=== PATIENT | male | born 1970 | race Caucasian/White ===

== ENCOUNTER 2018-04-09 15:40 | Emergency (ER) | payer BC ==
[2018-04-09] MEDS ORDERED: Ondansetron INJ* 2 MG/ML VIAL IV ONE (16:43)
[2018-04-09] MEDS ORDERED: Morphine VIAL* 10 MG/ML 1 ML VIAL IV ONE (16:43)
--- NOTE | 2018-04-09 16:55 | ED ---
Adult Trauma - HPI Summary HPI Summary: This patient is a 47 year old M presenting to [facility] accompanied by status post fall approximately 14 feet off a roof. Pt states he landed feet first ( more impact on left), knees bent. The patient rates the pain 10/10 in severity. Symptoms aggravated by sitting up. Symptoms alleviated by nothing. Patient reports bilateral ankle pain (worse on left). Patient denies back pain, knee pain, neck pain, headache, abd pain, and hip pain. - History of Current Complaint Chief Complaint: EDExtremityLower Stated Complaint: FALL/LT LEG INJURY Time Seen by Provider: 04/09/18 16:27 Hx Obtained From: Patient Mechanism of Injury: Fall Ambulatory at the Scene: Yes Loss of Consciousness: no loss of consciousness Onset/Duration: Started Hours Ago, Traumatic, Still Present Onset of Pain: Immediate, Post Accident Onset Severity: Severe Current Severity: Severe Pain Intensity: 10 Pain Scale Used: 0-10 Numeric Location: Extremities Aggravating Factor(s): Other - Positive sitting up Alleviating Factor(s): Nothing Associated Signs & Symptoms: Positive: Other: - Negative back pain, knee pain, neck pain, headache, abd pain, and hip pain. - Allergy/Home Medications Allergies/Adverse Reactions: Allergies Allergy/AdvReac Type Severity Reaction Status Date / Time No Known Allergies Allergy Verified 04/09/18 15:46 Home Medications: Home Medications BuPROPion XL* 150 mg PO DAILY 04/09/18 [History Confirmed 04/09/18] PMH/Surg Hx/FS Hx/Imm Hx Previously Healthy: No Endocrine/Hematology History: Reports: Hx Diabetes - type 2 metformin, juanuvia Cardiovascular History: Reports: Hx Hypertension Infectious Disease History: No Infectious Disease History: Denies: Traveled Outside the [place] in Last 30 Days - Family History Known Family History: Positive: Cardiac Disease, Diabetes - Social History Occupation: Employed Full-time Lives: With Family Alcohol Use: Occasionally Hx Substance Use: No Substance Use Type: Reports: None Hx Tobacco Use: No Smoking Status (MU): Never Smoked Tobacco Review of Systems Negative: Abdominal Pain Positive: Other - Positive bilateral ankle pain (worse on left). Negative back pain, knee pain, neck pain, and hip pain Negative: Headache All Other Systems Reviewed And Are Negative: Yes Physical Exam - Summary Physical Exam Summary: VITAL SIGNS: Reviewed. GENERAL: Patient is a well-developed and nourished male who is lying comfortable in the stretcher. Patient is not in any acute respiratory distress. HEAD AND FACE: No signs of trauma. No ecchymosis, hematomas or skull depressions. No sinus tenderness. EYES: PERRLA, EOMI x 2, No injected conjunctiva, no nystagmus. EARS: Hearing grossly intact. Ear canals and tympanic membranes are within normal limits. MOUTH: Oropharynx within normal limits. NECK: Supple, trachea is midline, no adenopathy, no JVD, no carotid bruit, no c- spine tenderness, neck with full ROM. CHEST: Symmetric, no tenderness at palpation LUNGS: Clear to auscultation bilaterally. No wheezing or crackles. CVS: Regular rate and rhythm, S1 and S2 present, no murmurs or gallops appreciated. ABDOMEN: Soft, non-tender. No signs of distention. No rebound no guarding, and no masses palpated. Bowel sounds are normal. EXTREMITIES: no cyanosis or clubbing. Deformity in right ankle and foot. Tenderness upon palpation, limited ROM, good capillary refill, good sensation NEURO: Alert and oriented x 3. No acute neurological deficits. Speech is normal and follows commands. SKIN: Dry and warm Triage Information Reviewed: Yes Vital Signs On Initial Exam: Initial Vitals Temp Pulse Resp BP Pulse Ox 98.5 F 77 18 119/73 98 04/09/18 15:42 04/09/18 15:42 04/09/18 15:42 04/09/18 15:42 04/09/18 15:42 Vital Signs Reviewed: Yes Procedures - Splinting Left Lower Extremity Location: Left Ankle Hand-Made Type: orthoglass Splint: posterior walking Pre-Proc Neuro Vasc Exam: normal Post-Proc Neuro Vasc Exam: normal Diagnostics - Vital Signs Vital Signs Temp Pulse Resp BP Pulse Ox 04/09/18 16:10 72 128/76 96 04/09/18 15:42 98.5 F 77 18 119/73 98 - Laboratory Result Diagrams: 04/09/18 17:22 04/09/18 17:22 Lab Statement: Any lab studies that have been ordered have been reviewed, and results considered in the medical decision making process. - Radiology Thoracic Spine XR Radiology Interpretation Completed By: ED Physician - Thoracic Spine XR reveals , per ED physician, no acute fracture dislocation. Lumbar Spine XR Radiology Interpretation Completed By: ED Physician - Lumbar spine XR reveals, per ED physician, no acute fracture dislocation. Hip XR Radiology Interpretation Completed By: ED Physician - Hip XR reveals, per ED physician, no acute fracture dislocation. L Ankle XR Radiology Interpretation Completed By: ED Physician - L ankle XR reveals, per ED physician, calcaneal fracture. R Foot XR Radiology Interpretation Completed By: ED Physician - R foot XR reveals, per ED physician, no acute fracture dislocation. - EKG 1709 Cardiac Rate: NL EKG Rhythm: Sinus Rhythm - [address] Segment: Normal Adult Trauma Course/Dx - Course Assessment/Plan: This patient is a 47 year old M presenting to [facility] accompanied by status post fall approximately 14 feet off a roof. Pt states he landed feet first (more impact on left), knees bent. The patient rates the pain 10/10 in severity. Symptoms aggravated by sitting up. Symptoms alleviated by nothing. Patient reports bilateral ankle pain (worse on left). Patient denies back pain, knee pain, neck pain, headache, abd pain, and hip pain. X-ray of the left foot shows positive a calcaneal fracture. X-ray of the right foot shows no acute fracture dislocation. X-ray of bilateral ankles shows no fracture dislocation. X-ray of the lateral hips no fracture dislocation. X-ray is of the hip no fracture dislocation. X-rays of the T- spine and LS-spine shows no fracture dislocation. I discussed my physical exam , findings and test results with Dr. Velez from orthopedics and after he reviewed the x-rays he agrees that the patient has only the left calcaneal fracture. He requests for the patient to be placed in a posterior splint. He requests CAT scan of the left foot and ankle. He also requests for the patient to be discharged home after the CT and follow-up at his office tomorrow morning. I discussed the findings and test results with the patient and the he agrees and understands. In the ED course the patient was given a dose of morphine and Phenergan for the pain. He will be having a prescription for Percocets. Patient is hemolyticus stable alert oriented 3. Be instructed and non weight bearing, use crutches, and elevate his left upper extremity above his heart. Patient understands and agrees. - Diagnoses Provider Diagnoses: Calcaneal fracture - Physician Notifications Discussed Care Of Patient With: Shoaib Mcclellan Time Discussed With Above Provider: 18:05 Instructed by Provider To: Other - Consult with Dr. Mcclellan (orthopedics) at 1805. He will look at the x-rays for the patient, and requests a CT of the left lower extremity. Consult with Dr. Mcclellan (orthopedics) at 1815. He confirms all the x-rays are negative except for the calcaneus fracture. Discharge - Sign-Out/Discharge Documenting (check all that apply): Sign-Out Patient Signing out patient TO: Randal Cameron - Upon shift change pending CT - Discharge Plan Condition: Stable Disposition: HOME Prescriptions: oxyCODONE TAB* [Roxycodone TAB 5 mg*] 5 mg PO Q4H PRN #12 tab MDD 4 PRN Reason: Pain Patient Education Materials: Calcaneal Fracture (ED) Referrals: Shoaib Mcclellan MD [Medical Doctor] - As Soon As Possible Additional Instructions: F/U with Dr. Velez tomorrow at 8 am. Return to the emergency department for any new or worsening symptoms. - Billing Disposition and Condition Condition: STABLE - Attestation Statements Document Initiated by Scribe: Yes Documenting Scribe: Anastasia Eagle Provider For Whom Scribe is Documenting (Include Credential): Jose E Helm MD Scribe Attestation: IAnastasia, scribed for Jose E Helm MD on 04/11/18 at 1843. Scribe Documentation Reviewed: Yes Provider Attestation: The documentation as recorded by the Anastasia monzon accurately reflects the service I personally performed and the decisions made by me, Jose E Helm MD
[2018-04-09] MEDS ORDERED: NS 0.9% 1000 ML* 1,000 ML IV ONE (16:59)
[2018-04-09] MEDS ORDERED: Morphine INJ* 4 MG/ML 1 ML SYRINGE (NEW SYRINGE VERSION) ONE (17:07)
[2018-04-09 17:39] LABS: ABS Basophils 0 10^3/ul (0-0.2); ABS Eosinophils 0 10^3/ul (0-0.6); ABS Lymphocytes 1.4 10^3/ul (1.0-4.8); ABS Monocytes 0.7 10^3/ul (0-0.8); ABS Neutrophils 10.9 10^3/ul (1.5-7.7); ABS Nucleated RBC 0 10^3/ul; Eosinophil % 0.3 % (0-6); Hematocrit 46 % (42-52); Hemoglobin 15.3 g/dl (14.0-18.0); Lymphocyte % 10.5 % (25-47); Mean Corpuscular HGB Conc 33 g/dl (31-36); Mean Corpuscular Hemoglobin 29 pg (27-31); Mean Corpuscular Volume 89 fL (80-94); Mean Platelet Volume 7.9 um3 (7.4-10.4); Nucleated Red Blood Cells % 0; Platelet Count 203 10^3/ul (150-450); Red Cell Distribution Width 13 % (10.5-15)
[2018-04-09 17:55] LABS: EGFR Non-African American 78.8 (>60)
[2018-04-09] MEDS ORDERED: fentaNYL* 50 MCG/ML 2 ML VIAL (100 MCG VIAL) IV SLOW PU ONE (18:16)
[2018-04-09 18:26] VITALS: BP 134/84
--- NOTE | 2018-04-09 19:13 | ED ---
Progress - Results/Orders Results/Orders: CT lower extremity: Complex, comminuted calcaneal fracture. Dr. Cameron has reviewed this report. Course/Dx - Course Course Of Treatment: A CT LE revealed a complex, comminuted calcaneal fracture. - Diagnoses Provider Diagnoses: Calcaneal fracture - Provider Notifications Discussed Care Of Patient With: Shoaib Mcclellan Time Discussed With Above Provider: 18:05 Instructed by Provider To: Other - Consult with Dr. Mcclellan (orthopedics) at 1805. He will look at the x-rays for the patient, and requests a CT of the left lower extremity. Consult with Dr. Mcclellan (orthopedics) at 1815. He confirms all the x-rays are negative except for the calcaneus fracture. Discharge - Sign-Out/Discharge Documenting (check all that apply): Patient Departure - discharge, Receiving Sign-Out Receiving patient FROM: Jose E Helm - Discharge Plan Condition: Stable Disposition: HOME Prescriptions: oxyCODONE TAB* [Roxycodone TAB 5 mg*] 5 mg PO Q4H PRN #12 tab MDD 4 PRN Reason: Pain Patient Education Materials: Calcaneal Fracture (ED) Referrals: Shoaib Mcclellan MD [Medical Doctor] - As Soon As Possible Additional Instructions: F/U with Dr. Velez tomorrow at 8 am. Return to the emergency department for any new or worsening symptoms. - Billing Disposition and Condition Condition: STABLE Disposition: Home - Attestation Statements Document Initiated by Eric: Yes Documenting Scribe: Greg Rosales Provider For Whom Eric is Documenting (Include Credential): Dr. Randal Cameron MD Scribe Attestation: Greg Okeefe scribed for Dr. Randal Cameron MD on 04/09/18 at 2040. Scribe Documentation Reviewed: Yes Provider Attestation: The documentation as recorded by the Greg monzon accurately reflects the service I personally performed and the decisions made by me, Dr. Randal Cameron MD
--- NOTE | 2018-04-09 19:26 | RAD ---
EXAM: CT Left Lower Extremity Without Intravenous Contrast, Foot CLINICAL HISTORY: 47 years old, male; Injury or trauma; Fall; Initial encounter; Blunt trauma; Heel; Left; Additional info: Calcaneal fracture TECHNIQUE: Axial computed tomography images of the left foot without intravenous contrast. All CT scans at this facility use at least one of these dose optimization techniques: automated exposure control; mA and/or kV adjustment per patient size (includes targeted exams where dose is matched to clinical indication); or iterative reconstruction. Coronal and sagittal reformatted images were created and reviewed. COMPARISON: No relevant prior studies available. FINDINGS: Bones/joints: Complex, comminuted fracture of the calcaneus. No other tarsal fractures. No dislocation. Soft tissues: Diffuse soft tissue swelling surrounding the calcaneus. No radiopaque foreign body. IMPRESSION: 1. Complex, comminuted calcaneal fracture.
[2018-04-09] MEDS ORDERED: oxyCODONE/Acetamin 5/325 MG* TAB ONE (20:00)
[2018-04-09] MEDS ORDERED: oxyCODONE/Acetamin 5/325 MG* TAB PO ONE (20:04)
[2018-04-09] MEDS: oxyCODONE TAB* 5 MG TAB PO ONE ×2 (21:00)
--- NOTE | 2018-04-10 07:40 | RAD ---
HISTORY: trauma / fall COMPARISONS: None VIEWS: 6 , Frontal, lateral, and oblique views of the left foot and of the right foot FINDINGS: Right: BONE DENSITY: Normal. BONES: There is no displaced fracture. JOINTS: There is no arthropathy. ALIGNMENT: There is no dislocation. The alignment is anatomic. SOFT TISSUES: Unremarkable. Left: BONE DENSITY: Normal. BONES: There is a comminuted fracture of the left calcaneus with articular extension. JOINTS: There is no arthropathy. ALIGNMENT: There is no dislocation. The alignment is anatomic. SOFT TISSUES: Unremarkable. OTHER FINDINGS: None. IMPRESSION: COMMINUTED FRACTURE OF THE LEFT CALCANEUS. NO ACUTE OSSEOUS INJURY TO THE RIGHT FOOT. IF SYMPTOMS PERSIST, RECOMMEND REPEAT IMAGING. R1
--- NOTE | 2018-04-10 07:50 | RAD ---
INDICATION: Bilateral hip pain after falling off of the roof COMPARISON: None TECHNIQUE: 2 views of each hip and an AP view of the pelvis were obtained. FINDINGS: The visualized bones of the hips are well-corticated and properly aligned. The joint spaces are normal.. There is no radiographic evidence of acute fracture or dislocation. IMPRESSION: Normal radiograph of the bilateral hips. If the patient's symptoms persist follow-up imaging is recommended. R1
--- NOTE | 2018-04-10 07:52 | RAD ---
INDICATION: Back pain after falling off of a roof COMPARISON: None. TECHNIQUE: 4 views of the lumbar spine and 2 views of the thoracic spine were obtained. FINDINGS: The vertebra are in normal alignment. No fracture is seen. Mild degenerative changes include loss of intervertebral disc height at the lower thoracic and upper lumbar spine with mild anterior marginal osteophyte formation IMPRESSION: Mild degenerative changes without radiographically apparent fracture or dislocation. R1
--- NOTE | 2018-04-10 08:29 | RAD ---
INDICATION: Bilateral ankle pain after falling off of a roof COMPARISON: None. TECHNIQUE: 3 views of each ankle were obtained. FINDINGS: Left: There is moderate to severe soft tissue swelling overlying the left fibular malleolus. Depicted best on the lateral view there is comminuted fracture involving the calcaneus with inferior impaction of the talus. The remaining visualized bones appear to be intact and appropriately aligned. Right: There is no significant soft tissue swelling. On the lateral view there is a 3 mm bony fragment immediately posterior to the talocalcaneal joint without a definite donor site identified. Enthesophyte is noted on the calcaneal tubercle at the insertion site of the Achilles tendon. The bones otherwise appear to be intact and appropriately aligned. IMPRESSION: COMMINUTED LEFT CALCANEAL FRACTURE. The ER sr community manager conveyed notes to me regarding this patient's care indicating that Dr. Mcclellan is aware of the left calcaneal fracture. R1
== END 2018-04-09 21:40 | disposition home or self-care (01) ==
LOC: ED 15:40
DX: S92.002A Unspecified fracture of left calcaneus, initial encounter for closed fracture (principal); W13.2XXA Fall from, out of or through roof, initial encounter; Y92.9 Unspecified place or not applicable; M25.571 Pain in right ankle and joints of right foot; E11.9 Type 2 diabetes mellitus without complications; Z79.84 Long term (current) use of oral hypoglycemic drugs
CPT/HCPCS: 36415; 72070; 72100; 73523; 80053; 85025; 86140; 93005; 96361; 96374; 96375; 99283; A9270-GY; J2270; J2405; J3010

== ENCOUNTER 2018-04-20 09:05 | Day surgery (SDC) | payer BC ==
[~2018-04-20 09:05] MED LIST: Buffered Lidocaine 0.9% SYRIN* 5 ML/SYR SYRINGE INTRADERM ONE
[2018-04-20] MEDS ORDERED: Scopolamine 1.5 mg* PATCH ONE (09:45)
[2018-04-20] MEDS ORDERED: ceFAZolin 1 GM in Dextrose (*) 1 GM/50 ML BAG IVPB ONE (09:45)
[2018-04-20] MEDS ORDERED: ceFAZolin 2 GM PREMIX in ORs 2 GM/50 ML BAG IVPB ONE (09:45)
[2018-04-20] MEDS ORDERED: Midazolam* 1 MG/ML 2 ML VIAL (2 MG) ONE (09:46)
[2018-04-20] MEDS ORDERED: fentaNYL* 50 MCG/ML 2 ML VIAL (100 MCG VIAL) ONE ×2 (09:46→12:13)
[2018-04-20] MEDS ORDERED: Propofol* 10 MG/ML 20 ML BTL IV PUSH ONE (11:59)
[2018-04-20] MEDS ORDERED: Lidocaine 2% PF * 5 ML VIAL ONE (11:59)
[2018-04-20] MEDS ORDERED: Dexamethasone IV* 4 MG/ML 1 ML (4 MG) ONE (11:59)
[2018-04-20] MEDS ORDERED: Ondansetron INJ* 2 MG/ML VIAL ONE (11:59)
[2018-04-20] MEDS ORDERED: Bupivacaine 0.25% W/EPI* 10 ML SDV ONE (12:00)
[2018-04-20] MEDS ORDERED: Bupivacaine 0.25% SDV* 30 ML ONE (14:00)
[2018-04-20 16:06] VITALS: BP 123/73
--- NOTE | 2018-04-20 18:10 | OP ---
Operative Report - Blank - Operative Report Date of Operation: 04/20/18 Note: PATIENT: Geronimo Cortez DATE OF : 1970 DATE OF SURGERY: 04/20/2018 SURGEON: Shoaib Mcclellan MD SOFTWARE DEVELOPMENT COORDINATOR: ALESHIA Navarro, whos assistance was necessary for positioning, retraction, help with instrumentation, and closure. ANESTHESIOLOGIST: Dr. Clark PREOPERATIVE DIAGNOSIS: Left calcaneus fracture and peroneal tendon dislocation POSTOPERATIVE DIAGNOSIS: Left calcaneus fracture and peroneal tendon dislocation OPERATION: 1. Left calcaneus fracture open reduction and internal fixation. 2. Left ankle stabilization of dislocated peroneal tendons. ANESTHESIA: GETA + Block IMPLANTS: Arthrex comprehensive foot set plate and screws. TOURNIQUET TIME: Less than two hours with a well-padded thigh tourniquet at 250mmHg SPECIMENS: none ESTIMATED BLOOD LOSS: minimal COMPLICATIONS: none STATUS: Stable from the operating room to the recovery room and then home. INDICATIONS FOR PROCEDURE: Geronimo sustained a very comminuted and displaced left calcaneus fracture. He also dislocated his peroneal tendons. We had more than one long discussion about the severity of this injury and the likelihood of long-term problems. Both operative and non-operative treatment alternatives were reviewed. Further, the nature and risks of surgery were reviewed in careful detail, in the office as well as the pre-operative holding area. Our discussions regarding the risks of surgery included, but were not limited to, infection, wound problems, nerve injury, neuroma, RSD, persistent symptoms, blood clot, loss of fixation and reduction, malunion, nonunion, posttraumatic arthritis, persistent pain, skin breakdown, need for further surgery, failure of the surgery, and even the remote chance of catastrophic complication, including loss of limb. DESCRIPTION OF PROCEDURE: The patient was seen in the preoperative holding unit and informed written consent was obtained. The appropriate extremity was marked. The patient was then brought to the operating room and carefully positioned on the operating room table. Anesthesia was induced. All bony prominences were padded with great care. A well-padded thigh tourniquet was placed. A chlorhexidine based pre- scrub was performed followed by a chloraprep prep and drape in standard sterile fashion. A surgical safety pause was then conducted in which we confirmed the appropriate patient, extremity, planned procedure, availability of equipment, indication and administration of prophylactic antibiotics, and DVT prophylaxis in the form of a compression boot on the non-surgical extremity. I began with an Esmarch exsanguination of the limb and inflated the tourniquet. I utilized a sinus tarsi incision at the lateral hindfoot with proximal extension along the distal fibula. I carefully dissected down to the level of the subtalar joint, making sure to protect the peroneal tendons. I exposed the fractures and used a Napoles to loosen up the fracture fragments. Irrigation was used to remove fracture hematoma. I then reduced the fragments that involved the posterior facet. I placed K wires to hold the reduction. I then placed guidewires for the 3.0 mm cannulated screws. The placement was confirmed fluoroscopically, measured, overdrilled, and screws were placed. This held the posterior facet well reduced. I then placed a Steinmann pin into the posterior aspect calcaneus to lever this fragment out of varus. Once this was achieved, k-wires were used to provisionally hold the reduction. Fhese were confirmed fluoroscopically. I then placed an Arthrex calcaneus fracture plate laterally. Screws were placed through the plate into the fracture fragments. This held the calcaneus in satisfactory alignment. I then irrigated and placed cancellous allograft bone chips in the central defect of the calcaneus. At this point, all provisional fixation was removed and final fluoroscopic images were obtained. I directly visualized the posterior facet of the calcaneus, and confirmed that no hardware crossed into the joint. I then turned my attention to the dislocated peroneal tendons. They were grossly dislocated to the lateral aspect of the fibula. I incised the overlying superior peroneal retinaculum. I then relocated the peroneal tendons into the retro-fibular groove. I then utilized a 0.062 K wire and #1 Vicryl to repair this superior peroneal retinaculum to the posterior aspect of the fibula using transosseous sutures. This held the peroneal tendons well reduced. I was able to slide my Mozelle up along the tendons as well. The wound was then copiously irrigated and meticulously closed in layers utilizing 3-0 Monocryl and 3-0 Nylon for the skin. A sterile dressing was then applied followed by a splint with the ankle in a neutral position. The patient was then awakened from anesthesia and transferred to the recovery room in stable condition. There were no complications. All needle and sponge counts were correct at the end of the case. ATTESTATION: I attest I was present and scrubbed and performed the critical portions of the procedure myself. POSTOPERATIVE PLAN: The plan is for [id number] in a splint. Follow-up in 1 week for a wound check.
--- NOTE | 2018-04-21 07:38 | RAD ---
INDICATION: Left foot calcaneus fracture ORIF COMPARISONS: April 09, 2018 TECHNIQUE: Fluoroscopy was provided for a surgical procedure. Total fluoroscopy time is: 40.3 seconds FINDINGS: Spot images demonstrate internal fixation of the calcaneus. IMPRESSION: FLUOROSCOPY WAS PROVIDED FOR A SURGICAL PROCEDURE CPT II Codes: G9500
== END 2018-04-20 16:10 | disposition home or self-care (01) ==
LOC: OR 09:05
PROVIDERS: ATTEND Orthopaedic Surgery
DX: S92.012A Displaced fracture of body of left calcaneus, initial encounter for closed fracture (principal); M25.372 Other instability, left ankle; E11.9 Type 2 diabetes mellitus without complications; G89.18 Other acute postprocedural pain; Z79.84 Long term (current) use of oral hypoglycemic drugs; Z87.891 Personal history of nicotine dependence; W13.2XXA Fall from, out of or through roof, initial encounter; Y92.008 Other place in unspecified non-institutional (private) residence as the place of occurrence of the external cause; I10 Essential (primary) hypertension; G47.33 Obstructive sleep apnea (adult) (pediatric); E78.5 Hyperlipidemia, unspecified; K21.9 Gastro-esophageal reflux disease without esophagitis
CPT/HCPCS: 76001; A9270-GY; C1713; J0690; J1100; J2250; J2405; J2704; J3010

== ENCOUNTER 2018-04-23 21:38 | Emergency (ER) | payer BC ==
--- OUTSIDE RECORDS SUMMARY | 2018-04-23 21:50 | XMS REPORT ---
:1970 External Reference #:[id number] Author Organization [employer] Address [address] [place] [address] Phone [phone] Care Team Providers Name Role Phone Bebo Aguero NP Primary Care Physician Unavailable Payers Type Date Identification Numbers Payment Provider Subscriber Commercial Policy Number: [id number] [employer] Geronimo Cortez PayID: [id number] [address] [address] [place] [address] Problems Date Description Provider Status Onset: 04/18/2018 Cellulitis of left lower limb Shoaib Mcclellan MD Active Onset: 04/10/2018 Joint derangement Shoaib Mcclellan MD Active Onset: 04/10/2018 Closed fracture of calcaneus Shoaib Mcclellan MD Active Family History Date Family Member(s) Problem(s) Comments General Thyroid Disease General Diabetes General Lung Cancer Social History Type Date Description Comments ETOH Use Denies alcohol use Smoking Patient is a former smoker Allergies, Adverse Reactions, Alerts Date Description Reaction Status Severity Comments 05/14/2015 NKDA active Medications Medication Date Status Form Strength Qnty SIG Indications Ordering Provider Oxycodone HCL Active Tablets 5mg 40tabs 1 tabs by Shoaib 018 mouth Eleuterio, every 4-6 MD hours as needed Cephalexin Hx Tablets 250mg 40tabs 1 tab S92.012A Shoaib 018 - every six Eleuterio, hours MD [place] Knee Scooter Active 1units Shoaib Mcclellan MD Glipizide ER /0 Active Tablets ER 5mg 1 by Unknown 000 24HR mouth every day Lantus Active Solution 100Unit/ML 50 units Unknown Solostar 000 Pen-Inject a day Lisinopril Active Tablets 10mg 1 by Unknown 000 mouth every day Januvia Active Tablets 100mg 1 by Unknown 000 mouth every day Metformin HCL Active Tablets 1000mg 1 by Unknown 000 mouth twice a day Simvastatin Active Tablets 40mg 1 by Unknown 000 mouth every night at bedtime Co Q 10 Active Capsules 100mg 1 by Unknown 000 mouth every day Invokana Active Unknown 000 Medications Administered in Office Medication Date Status Form Strength Qnty SIG Indications Ordering Provider Technetium TC Administered Injection Ger Rosales M.D. Tetrofosmin, Per Unit Dose Up To 40 Millicuries Vital Signs Date Vital Result Comment 04/21/2018 Height 70 inches 5'10" Heart Rate 64 /min Respiratory Rate 16 /min Body Temperature 98.4 F Pain Level 7 04/18/2018 Height 70 inches 5'10" Weight 295.00 lb Heart Rate 76 /min Respiratory Rate 18 /min Body Temperature 97.0 F Pain Level 3 BMI (Body Mass Index) 42.3 kg/m2 04/10/2018 Height 70 inches 5'10" Weight 295.00 lb Heart Rate 84 /min Respiratory Rate 18 /min Body Temperature 97.5 F Pain Level 5 BMI (Body Mass Index) 42.3 kg/m2 Results Test Date Test Result H/L Range Note Laboratory test finding 04/20/2018 Point of Care Glucose 120 mg/dL High 70 -100 1 Laboratory test finding 04/20/2018 Point of Care Glucose 149 mg/dL High 70 -100 2 1 Treasury Assistant: [id number] Treasury Assistant: [id number] Procedures Date CPT Code Description Status 04/20/2018 14015 FX Calcaneus W/Wo Fixation Open TX Completed 04/20/2018 75093 Repair Dislocating Peroneal Tendon Completed 05/15/2015 94574 Stress Test Completed 05/15/2015 80412 Myocardial Perfusion Imaging Tomographic (Spect) Completed Multiple Studies Encounters Type Date Location Provider CPT E/M Dx Office Visit 04/18/2018 [facility] [place] [address] S92.012A 9:45a [facility] M25.372 L03.116 W17.89xA L53.9 Office Visit 04/10/2018 2:45p [facility] [place] [address] S92.012A [facility] [place] M25.372 W17.89xA Plan of Care Future Appointment(s):04/28/2018 8:30 am - Shoaib Mcclellan MD at [facility]05/01/2018 1:45 pm - Shoaib Mcclellan MD at [facility]
--- OUTSIDE RECORDS SUMMARY | 2018-04-23 21:50 | XMS REPORT ---
:1970 External Reference #:[id number] Author Organization [employer] Address [address] [place] [address] [place] [address] Phone [phone] Care Team Providers Name Role Phone Bebo Aguero NP Primary Care Physician Unavailable Payers Type Date Identification Numbers Payment Provider Subscriber Commercial Policy Number: [id number] BS Facets Geronimo Cortez PayID: [id number] [address] [address] [place] [address] Problems Date Description Provider Status Onset: 04/18/2018 [...] Form Strength Qnty SIG Indications Ordering Provider Cephalexin Hx Tablets 250mg 40tabs 1 tab S92.012A Shoaib Corado - every six Eleuterio, hours MD Corado Knee Scooter Active 1units Shoaib Mcclellan MD Glipizide ER Active Tablets ER 5mg 1 by Unknown 000 24HR mouth every day Lantus Active Solution 100Unit/ML 50 units Unknown Solostar 000 Pen-Inject a day Lisinopril 00/00/0 Active Tablets 10mg 1 by Unknown 000 mouth every day Januvia 0 Active Tablets 100mg 1 by Unknown 000 mouth every day Metformin HCL 0 Active Tablets 1000mg 1 by Unknown 000 mouth twice a day Simvastatin Active Tablets 40mg 1 by Unknown 000 mouth every night at bedtime Co Q 10 Active Capsules 100mg 1 by Unknown 000 mouth every day Invokana Active Unknown 000 Medications Administered in Office Medication Date Status Form Strength Qnty SIG Indications Ordering Provider Technetium TC Administered Injection Ger Deleon 99M María Rosales M.D. Tetrofosmin, Per Unit Dose Up To 40 Millicuries Vital Signs Date Vital Result Comment 04/18/2018 Height 70 inches 5'10" Weight 295.00 lb Heart Rate 76 /min Respiratory Rate 18 /min Body Temperature 97.0 F Pain Level 3 BMI (Body Mass Index) 42.3 kg/m2 04/10/2018 Height 70 inches 5'10" Weight 295.00 lb Heart Rate 84 /min Respiratory Rate 18 /min Body Temperature 97.5 F Pain Level 5 BMI (Body Mass Index) 42.3 kg/m2 Results Description No Information Procedures Date CPT Code Description Status 05/15/2015 78841 Stress Test Completed 05/15/2015 99135 Myocardial Perfusion Imaging Tomographic (Spect) Completed Multiple Studies Encounters Type Date Location Provider CPT E/M Dx Office Visit 04/10/2018 [facility] [place] [address] S92.012A 2:45p [facility] M25.372 W17.89xA Plan of Care Future Appointment(s):05/01/2018 1:45 pm - Shoaib Mcclell[facility]04/20/2018 12:15 pm - BRIEN Navarro at [facility]04/20/2018 12:15 pm - Shoaib Mcclellan MD at [facility].04/18/2018 - Shoaib Mcclellan MDS92.012A Disp fx of body of left calcaneus, init for clos fxNew Medication:Cephalexin 250 mgFollow up: Follow Up: 13-15 days marpqoK34.372 Other instability, left mundaK26.116 Cellulitis of left lower limb
--- OUTSIDE RECORDS SUMMARY | 2018-04-23 21:51 | XMS REPORT ---
:1970 External Reference #:[id number] Author Organization [employer] Address [address] [place] [address] [place] [address] Phone [phone] Care Team Providers Name Role Phone Bebo Aguero NP Primary Care Physician Unavailable Payers Type Date Identification Numbers Payment Provider Subscriber Commercial Policy Number: [id number] BS Facets Geronimo Cortez PayID: [id number] [address] [address] [place] [address] Problems Description No Information Family History Date Family Member(s) Problem(s) Comments General Thyroid Disease General Diabetes General Lung Cancer Social History Type Date Description Comments ETOH Use Denies alcohol use Smoking Patient is a former smoker Allergies, Adverse Reactions, Alerts Date Description Reaction Status Severity Comments 05/14/2015 NKDA active Medications Medication Date Status Form Strength Qnty SIG Indications Ordering Provider Knee Scooter Active 1units Shoaib 018 MD Eleuterio Glipizide ER Active Tablets ER 5mg 1 [...] Millicuries Vital Signs Date Vital Result Comment 04/10/2018 Height 70 inches 5'10" Weight 295.00 lb Heart Rate 84 /min Respiratory Rate 18 /min Body Temperature 97.5 F Pain Level 5 BMI (Body Mass Index) 42.3 kg/m2 Results Description No Information Procedures Date CPT Code Description Status 05/15/2015 09016 Stress Test Completed 05/15/2015 94122 Myocardial Perfusion Imaging Tomographic (Spect) Completed Multiple Studies Plan of Care Future Appointment(s):04/18/2018 9:45 am - [facility]
[2018-04-23] MEDS ORDERED: Vancomycin(*) 1,000 MG in NS 0.9% 250 ML* 250 ML IVPB ONE (23:19)
[2018-04-23] MEDS ORDERED: NS 0.9% 1000 ML* 1,000 ML IV ONE (23:19)
[2018-04-23] MEDS ORDERED: Piperacillin/Tazobac ADVAN(*) 3.375 GM in NS 0.9% 100 ML* 100 ML IVPB ONE (23:20)
[2018-04-23 23:49] LABS: ABS Basophils 0.1 10^3/ul (0-0.2); ABS Eosinophils 0.2 10^3/ul (0-0.6); ABS Lymphocytes 2.4 10^3/ul (1.0-4.8); ABS Monocytes 0.6 10^3/ul (0-0.8); ABS Neutrophils 4.1 10^3/ul (1.5-7.7); ABS Nucleated RBC 0 10^3/ul; Eosinophil % 2.3 % (0-6); Hematocrit 39 % (42-52); Hemoglobin 13.3 g/dl (14.0-18.0); Lymphocyte % 32.1 % (25-47); Mean Corpuscular HGB Conc 34 g/dl (31-36); Mean Corpuscular Hemoglobin 30 pg (27-31); Mean Corpuscular Volume 88 fL (80-94); Mean Platelet Volume 7.3 um3 (7.4-10.4); Nucleated Red Blood Cells % 0.1; Platelet Count 244 10^3/ul (150-450); Red Blood Count 4.44 10^6/ul (4.00-5.40); Red Cell Distribution Width 13 % (10.5-15); White Blood Count 7.4 10^3/ul (3.5-10.8)
[2018-04-23 23:56] LABS: INR 0.95 (0.77-1.02)
[2018-04-24 00:04] LABS: EGFR Non-African American 56.9 (>60)
[2018-04-24] MEDS ORDERED: Morphine INJ* 4 MG/ML 1 ML SYRINGE (NEW SYRINGE VERSION) ONE (00:44)
[2018-04-24] MEDS ORDERED: Ondansetron INJ* 2 MG/ML VIAL ONE (00:44)
[2018-04-24] MEDS ORDERED: Ondansetron INJ* 2 MG/ML VIAL IV ONE (00:46)
[2018-04-24] MEDS ORDERED: Morphine INJ* 4 MG/ML 1 ML SYRINGE (NEW SYRINGE VERSION) IV ONE (00:46)
--- NOTE | 2018-04-24 00:55 | ED ---
Lower Extremity - HPI Summary HPI Summary: Patient is a 47 y/o M w/ c/o left foot pain, burning sensation, and tingling onsetting around 1800 today. Fever and chills are denied. He notes that he had surgery for his left foot three days ago after falling off of the roof of a house. Patient reports bone graft, plates were placed. He states he has been keeping leg elevated and has been avoiding walking on foot as much as possible. Patient states that he took Tylenol x 3 today, last was 2000, 500 mg, 2 oxycodone at 1930, and 4 Motrin, last at 1800, 400 mg. Patient has been on Keflex. Patient is diabetic, takes metformin, lasix and victoza. BG this morning was 139. On triage, pain is rated 7/10, nothing is noted to aggravate/ alleviate Sx. Home medications and allergies are reviewed. - History of Current Complaint Chief Complaint: EDExtremityLower Stated Complaint: LEFT LEG NUMBNESS POST SURGERY Time Seen by Provider: 04/23/18 22:58 Hx Obtained From: Patient Mechanism Of Injury: Other - initial mechanism of injury involved falling from roof of house, patient had foot surgery and is now concerned of left foot pain and tingling Onset/Duration: Hours - onset 1800 today Severity Currently: Severe - 7/10 Pain Intensity: 7 Pain Scale Used: 0-10 Numeric - 7/10 Timing: Constant Location: Is Discrete @ - left foot Associated Signs And Symptoms: Positive: Other - NEGATIVE: chills. Negative: Fever Aggravating Factor(s): Nothing Alleviating Factor(s): Nothing - Allergies/Home Medications Allergies/Adverse Reactions: Allergies Allergy/AdvReac Type Severity Reaction Status Date / Time No Known Allergies Allergy Verified 04/23/18 21:42 PMH/Surg Hx/FS Hx/Imm Hx Endocrine/Hematology History: Reports: Hx Diabetes - type 2 metformin, Cardiovascular History: Reports: Hx Hypertension, Other Cardiovascular Problems/ Disorders - on BP med for diabetes Respiratory History: Reports: Hx Sleep Apnea Sensory History: Reports: Hx Contacts or Glasses - readers Denies: Hx Hearing Aid Opthamlomology History: Reports: Hx Contacts or Glasses - readers Neurological History: Reports: Other Neuro Impairments/Disorders - on meds to help with stress at work - Cancer History Hx Chemotherapy: No - Surgical History Surgery Procedure, Year, and Place: right ring finger knuckle repair. carpal tunnel release right hand. tonsillectomy and adenoidectomy Hx Anesthesia Reactions: Yes - just a little nausea with vomiting Infectious Disease History: No Infectious Disease History: Denies: Traveled Outside the [place] in Last 30 Days - Family History Known Family History: Positive: Cardiac Disease, Diabetes - Social History Alcohol Use: Weekly Hx Substance Use: No Substance Use Type: Reports: None Hx Tobacco Use: No Smoking Status (MU): Former Smoker Amount Used/How Often: smoked for [id number] , 1ppd Review of Systems Negative: Fever, Chills Positive: Other - left foot pain Neurological: Other - tingling, burning sensation at left foot All Other Systems Reviewed And Are Negative: Yes Physical Exam - Summary Physical Exam Summary: VITAL SIGNS: Reviewed. GENERAL: Patient is a well-developed and nourished male who is lying comfortable in the stretcher. Patient is not in any acute respiratory distress. HEAD AND FACE: No signs of trauma. No ecchymosis, hematomas or skull depressions. No sinus tenderness. EYES: PERRLA, EOMI x 2, No injected conjunctiva, no nystagmus. EARS: Hearing grossly intact. Ear canals and tympanic membranes are within normal limits. MOUTH: Oropharynx within normal limits. NECK: Supple, trachea is midline, no adenopathy, no JVD, no carotid bruit, no c- spine tenderness, neck with full ROM. CHEST: Symmetric, no tenderness at palpation LUNGS: Clear to auscultation bilaterally. No wheezing or crackles. CVS: Regular rate and rhythm, S1 and S2 present, no murmurs or gallops appreciated. ABDOMEN: Soft, non-tender. No signs of distention. No rebound no guarding, and no masses palpated. Bowel sounds are normal. EXTREMITIES: FROM in all major joints, no edema, no cyanosis or clubbing. Patient can wiggle toes but he reports it is painful. NEURO: Alert and oriented x 3. No acute neurological deficits. Speech is normal and follows commands. SKIN: Dry and warm. Left leg had posterior splint up to knee from distal foot. This was removed to reveal swelling of left foot, warm and tender, incision over the lateral aspect with stitches. There is erythema around stitches, no drainage. dorsalis pedis pulses are 2+ Triage Information Reviewed: Yes Vital Signs On Initial Exam: Initial Vitals Temp Pulse Resp BP Pulse Ox 98.2 F 111 18 131/76 97 04/23/18 21:41 04/23/18 21:41 04/23/18 21:41 04/23/18 21:41 04/23/18 21:41 Vital Signs Reviewed: Yes Procedures - Splinting Left Lower Extremity Hand-Made Type: orthoglass Splint: posterior walking Pre-Proc Neuro Vasc Exam: normal Post-Proc Neuro Vasc Exam: normal Diagnostics - Vital Signs Vital Signs Temp Pulse Resp BP Pulse Ox 04/24/18 00:46 18 04/24/18 00:01 80 123/87 98 04/24/18 00:00 81 97 04/23/18 23:52 84 140/92 97 04/23/18 23:36 97 04/23/18 23:31 86 93/66 94 04/23/18 23:30 84 96 04/23/18 21:41 98.2 F 111 18 131/76 97 - Laboratory Lab Results: Lab Results 04/23/18 04/23/18 04/23/18 Range/Units 23:30 23:30 23:30 WBC 7.4 (3.5-10.8) 10^3/ul RBC 4.44 (4.00-5.40) 10^6/ul Hgb 13.3 L (14.0-18.0) g/dl Hct 39 L (42-52) % MCV 88 (80-94) fL MCH 30 (27-31) pg MCHC 34 (31-36) g/dl RDW 13 (10.5-15) % Plt Count 244 (150-450) 10^3/ul MPV 7.3 L (7.4-10.4) um3 Neut % (Auto) 56.1 (38-83) % Lymph % (Auto) 32.1 (25-47) % Ballard % (Auto) 8.7 H (0-7) % Eos % (Auto) 2.3 (0-6) % Baso % (Auto) 0.8 (0-2) % Absolute Neuts (auto) 4.1 (1.5-7.7) 10^3/ul Absolute Lymphs (auto) 2.4 (1.0-4.8) 10^3/ul Absolute Monos (auto) 0.6 (0-0.8) 10^3/ul Absolute Eos (auto) 0.2 (0-0.6) 10^3/ul Absolute Basos (auto) 0.1 (0-0.2) 10^3/ul Absolute Nucleated RBC 0 10^3/ul Nucleated RBC % 0.1 INR (Anticoag Therapy) 0.95 (0.77-1.02) APTT 29.9 (26.0-36.3) seconds Sodium 138 (135-145) mmol/L Potassium 4.3 (3.5-5.0) mmol/L Chloride 102 (101-111) mmol/L Carbon Dioxide 29 (22-32) mmol/L Anion Gap 7 (2-11) mmol/L BUN 27 H (6-24) mg/dL Creatinine 1.34 H (0.67-1.17) mg/dL Est GFR ( Amer) 68.8 (>60) Est GFR (Non-Af Amer) 56.9 (>60) BUN/Creatinine Ratio 20.1 H (8-20) Glucose 126 H (70-100) mg/dL Lactic Acid (0.5-2.0) mmol/L Calcium 8.9 (8.6-10.3) mg/dL Total Bilirubin 0.40 (0.2-1.0) mg/dL AST 15 (13-39) U/L ALT 21 (7-52) U/L Alkaline Phosphatase 63 (34-104) U/L Total Creatine Kinase 103 (10-223) U/L C-Reactive Protein 136.49 H (<8.01) mg/L Total Protein 6.7 (6.4-8.9) g/dL Albumin 3.6 (3.2-5.2) g/dL Globulin 3.1 (2-4) g/dL Albumin/Globulin Ratio 1.2 (1-3) 04/23/ Range/Units 23:30 WBC (3.5-10.8) 10^3/ul RBC (4.00-5.40) 10^6/ul Hgb (14.0-18.0) g/dl Hct (42-52) % MCV (80-94) fL MCH (27-31) pg MCHC (31-36) g/dl RDW (10.5-15) % Plt Count (150-450) 10^3/ul MPV (7.4-10.4) um3 Neut % (Auto) (38-83) % Lymph % (Auto) (25-47) % Ballard % (Auto) (0-7) % Eos % (Auto) (0-6) % Baso % (Auto) (0-2) % Absolute Neuts (auto) (1.5-7.7) 10^3/ul Absolute Lymphs (auto) (1.0-4.8) 10^3/ul Absolute Monos (auto) (0-0.8) 10^3/ul Absolute Eos (auto) (0-0.6) 10^3/ul Absolute Basos (auto) (0-0.2) 10^3/ul Absolute Nucleated RBC 10^3/ul Nucleated RBC % INR (Anticoag Therapy) (0.77-1.02) APTT (26.0-36.3) seconds Sodium (135-145) mmol/L Potassium (3.5-5.0) mmol/L Chloride (101-111) mmol/L Carbon Dioxide (22-32) mmol/L Anion Gap (2-11) mmol/L BUN (6-24) mg/dL Creatinine (0.67-1.17) mg/dL Est GFR ( Amer) (>60) Est GFR (Non-Af Amer) (>60) BUN/Creatinine Ratio (8-20) Glucose (70-100) mg/dL Lactic Acid 0.7 (0.5-2.0) mmol/L Calcium (8.6-10.3) mg/dL Total Bilirubin (0.2-1.0) mg/dL AST (13-39) U/L ALT (7-52) U/L Alkaline Phosphatase (34-104) U/L Total Creatine Kinase (10-223) U/L C-Reactive Protein (<8.01) mg/L Total Protein (6.4-8.9) g/dL Albumin (3.2-5.2) g/dL Globulin (2-4) g/dL Albumin/Globulin Ratio (1-3) Result Diagrams: 04/23/18 23:30 04/23/18 23:30 Lab Statement: Any lab studies that have been ordered have been reviewed, and results considered in the medical decision making process. Re-Evaluation - Re-Evaluation First Eval Re-Evaluation Time: 00:50 Comment: Posterior splint was allpied from the left forefoot to the proximal leg. He will be discharged to home, follow up with dr. spence tomorrow. He is agreeable with this plan. Lower Extremity Course/Dx - Course Assessment/Plan: Patient is a 47 y/o M w/ c/o left foot pain, burning sensation , and tingling onsetting around 1800 today. Fever and chills are denied. He notes that he had surgery for his left foot three days ago after falling off of the roof of a house. Patient reports bone graft, plates were placed. He states he has been keeping leg elevated and has been avoiding walking on foot as much as possible. Patient states that he took Tylenol x 3 today, last was 2000, 500 mg, 2 oxycodone at 1930, and 4 Motrin, last at 1800, 400 mg. Patient has been on Keflex. Physical exam showed left leg had posterior splint up to knee from distal foot. This was removed to reveal swelling of left foot, warm and tender, incision over the lateral aspect with stitches. There is erythema around stitches, no drainage. dorsalis pedis pulses are 2+. During ED course, patient was given fluids, IV antibiotics, Zofran 8 mg IV ONCE, and morphine 4 mg IV ONCE. Labs showed CRP 136.49, glucose 126, WBC 7.4, BUN 27, 1.34 creatinine. Patient's case was discussed with Dr. Dc at 2344, images of patient's foot texted to him. Dr. Dc states images are consistent w/ post-op changes, notes that it is normal for patient to experience pain with movement of toes. He states patient can be discharged to home and follow up with Dr. Spence in morning. Posterior orthoglass splint was applied to patient's left leg, neuovascular exam before and after splint application was normal. Patient is agreeable with discharge and follow up with Dr. Spence tomorrow. Dx of acute post-operative left foot pain - Diagnoses Provider Diagnoses: Acute postoperative pain of left foot - Physician Notifications Discussed Care Of Patient With: López Dc Time Discussed With Above Provider: 23:44 Instructed by Provider To: Other - Patient's case was discussed with Dr. Dc at 2344, images of patient's foot texted to him. Dr. Dc states images are consistent w/ post-op changes, notes that it is normal for patient to experience pain with movement of toes. He states patient can be discharged to home and follow up with Dr. Spence in morning. Discharge - Sign-Out/Discharge Documenting (check all that apply): Patient Departure - discharge - Discharge Plan Condition: Stable Disposition: HOME Patient Education Materials: Leg Pain (ED) Referrals: Shoaib Spence MD [Medical Doctor] - 1 Day Additional Instructions: RETURN TO THE EMERGENCY DEPARTMENT FOR CHANGING OR WORSENING SYMPTOMS. FOLLOW UP WITH DR. SPENCE TOMORROW MORNING. KEEP LEG ELEVATED, TAKE PAIN MEDICATIONS NEEDED. - Attestation Statements Document Initiated by Scribe: Yes Documenting Scribe: Waldemar Gongora Provider For Whom Scribe is Documenting (Include Credential): Lydia Toledo MD Scribe Attestation: IWaldemar , scribed for Lydia Toledo MD on 04/24/18 at 1463.
[2018-04-24 02:18] VITALS: BP 102/62
== END 2018-04-24 02:20 | disposition home or self-care (01) ==
LOC: ED 21:38
DX: G89.18 Other acute postprocedural pain (principal); M79.672 Pain in left foot; Z87.891 Personal history of nicotine dependence
CPT/HCPCS: 36415; 80053; 82550; 83605; 85025; 85610; 85730; 86140; 87040; 96365; 96366; 96375; 96376; 99284; J2270; J2405; J2543; J3370

== ENCOUNTER 2019-06-28 06:25 | Day surgery (SDC) | payer BC ==
[~2019-06-28 06:25] MED LIST changes: -Buffered Lidocaine 0.9% SYRIN* 5 ML/SYR SYRINGE INTRADERM ONE; +Buffered Lidocaine 1% SYRIN* 1 ML/SYRINGE INTRADERM ONE; +Lactated Ringers 1000 ML Bag* 1,000 ML IV SCH
[2019-06-28] MEDS ORDERED: ceFAZolin 2 GM in NS PREMIX(*) 2 GM/100 ML BAG IVPB ONE (07:16)
[2019-06-28] MEDS ORDERED: Buffered Lidocaine 1% SYRIN* 1 ML/SYRINGE INTRADERM ONE (07:16)
[2019-06-28] MEDS ORDERED: Bupivacaine 0.25% EPI 200,000* 30 ML SDV ONE (07:26)
[2019-06-28] MEDS ORDERED: ceFAZolin 1 GM ADVAN(*) 1 GM ADDV.VIAL IVPB ONE (07:37)
[2019-06-28] MEDS ORDERED: fentaNYL* 50 MCG/ML 2 ML VIAL (100 MCG VIAL) ONE (07:52)
[2019-06-28] MEDS ORDERED: Lidocaine 2% PF * 5 ML VIAL ONE (07:52)
[2019-06-28] MEDS ORDERED: Propofol* 10 MG/ML 20 ML BTL ONE (07:52)
[2019-06-28] MEDS ORDERED: Midazolam* 1 MG/ML 2 ML VIAL (2 MG) ONE (07:52)
[2019-06-28] MEDS ORDERED: Succinylcholine* 20 MG/ML 10 ML VIAL ONE (07:53)
[2019-06-28] MEDS ORDERED: Rocuronium* 10 MG/ML VIAL ONE (07:53)
[2019-06-28] MEDS ORDERED: Ketorolac INJ* 30 MG/ML 1 ML VIAL ONE (08:32)
[2019-06-28] MEDS ORDERED: Ondansetron INJ* 2 MG/ML VIAL ONE (08:32)
[2019-06-28] MEDS ORDERED: Dexamethasone IV* 4 MG/ML 1 ML (4 MG) ONE (08:32)
[2019-06-28] MEDS ORDERED: Metoclopramide IV* 5 MG/ML 2 ML VIAL ONE (08:32)
[2019-06-28] MEDS ORDERED: DiMENhydriNATE IV* 50 MG/ML VIAL IV PUSH PRN (08:36)
[2019-06-28] MEDS ORDERED: oxyCODONE TAB* 5 MG TAB PO PRN (08:36)
[2019-06-28] MEDS ORDERED: Acetaminophen TAB* 325 MG PO PRN (08:36)
[2019-06-28] MEDS ORDERED: fentaNYL* 50 MCG/ML 2 ML VIAL (100 MCG VIAL) IV PRN (08:36)
[2019-06-28] MEDS ORDERED: Naloxone* 0.4 MG/ML 1 ML VIAL IV PRN (08:36)
[2019-06-28] MEDS ORDERED: Bupivacaine 0.25% SDV PF* 10 ML VIAL INJ ONE (09:40)
[2019-06-28] MEDS ORDERED: Acetaminophen TAB* 325 MG ONE (10:29)
[2019-06-28] MEDS ORDERED: oxyCODONE TAB* 5 MG TAB ONE (10:55)
[2019-06-28 11:03] VITALS: BP 137/83
--- NOTE | 2019-06-28 11:43 | OP ---
Operative Report - Blank - Operative Report Date of Operation: 06/28/19 Note: PATIENT: Geronimo Cortez DATE OF : 1970 DATE OF SURGERY: 06/28/2019 SURGEON: Shoaib Mcclellan MD RAILROAD REPAIRER: ALESHIA Navarro, whos assistance was necessary for positioning, retraction, help with instrumentation, and closure. ANESTHESIOLOGIST: Dr. Thomas PREOPERATIVE DIAGNOSIS: Left recurrent peroneal tendon dislocation, peroneal tenosynovitis and possible tear. POSTOPERATIVE DIAGNOSIS: Left recurrent peroneal tendon dislocation, peroneal tenosynovitis, peroneus brevis tear, painful retained hardware, and calcaneal exostosis. OPERATION: 1. Left peroneus brevis tendon repair. 2. Left synovectomy of peroneal tendon sheath 3. Stabilization of dislocating left peroneal tendons with fibular groove deepening osteotomy. 4. Left foot removal of deep hardware 5. Left calcaneal saucerization ANESTHESIA: General IMPLANTS: none TOURNIQUET TIME: Less than 2 hours with a well-padded thigh tourniquet at 250mmHg SPECIMENS: none ESTIMATED BLOOD LOSS: minimal COMPLICATIONS: none STATUS: Stable from the operating room to the recovery room and then home. INDICATIONS FOR PROCEDURE: Geronimo had a prior left calcaneus fracture with peroneal tendon dislocation, treated operatively. He has developed pain at his peroneal tendons with recurrent dislocation. Both operative and non operative treatment alternatives were reviewed. Further, the nature and risks of surgery were reviewed in careful detail, in the office as well as the pre-operative holding area. Our discussions regarding the risks of surgery included, but were not limited to, infection, wound problems, nerve injury, neuroma, RSD, persistent symptoms, blood clot, failure of the surgery, recurrent instability and even the remote chance of catastrophic complication, including loss of limb. DESCRIPTION OF PROCEDURE: The patient was seen in the preoperative holding unit and informed written consent was obtained. The appropriate extremity was marked. The patient was then brought to the operating room and carefully positioned on the operating room table. Anesthesia was induced. All bony prominences were padded with great care. A chlorhexidine based pre-scrub was performed followed by a chloraprep prep and drape in standard sterile fashion. A surgical safety pause was then conducted in which we confirmed the appropriate patient, extremity, planned procedure, availability of equipment, indication and administration of prophylactic antibiotics, and DVT prophylaxis in the form of a compression boot on the non-surgical extremity. An Esmarch exsanguination of the limb was then performed and the tourniquet inflated. I utilized an incision overlying the peroneal tendons laterally. I carried the dissection down through the soft tissue to the level of the periosteum and superior peroneal retinaculum (SPR) with care taken to protect the sural nerve, which was not visualized during the procedure. The tendons were grossly dislocated. I incised the SPR to expose the peroneal tendons. Dissection of the tendons was carried distally. There was a large amount of inflamed tenosynovium within the tendon sheath as well as extensive adhesions, especially distally. An extensive synovectomy was performed. The tendons were explored at this time for any tears. There was a longitudinal split tear of the peroneus brevis at the level of the retro-fibular groove. I removed a small slip of loose frayed tendon in this area, leaving approximately 95% of the tendon intact. I then utilized a 3-0 Ethibond suture to repair the tendon tear. Distally, there was some heterotopic bone formation at the lateral calcaneus, including overgrowth on top of the plate. This appeared to be rubbing against the tendons and left little room for the tendons to travel. I used a rongeur to saucerize the lateral calcaneus, thus giving more room for the tendons to glide. I then decided to remove the plate and screws from the lateral calcaneus, as the peroneal tendons were also gliding right over these. The plate and screws were removed without difficulty. At this point, I carefully inspected the peroneal groove at the posterior aspect of the fibula. This was an abnormally shallow groove, even somewhat convex, and I therefore elected to perform a groove deepening osteotomy procedure. I utilized a small sagittal saw to create a longitudinal osteotomy in the fibula at the margin of the insertion of the SPR. I then utilized a bone tamp and a mallet to impact this area, deepening the groove. I took care to ensure that there were no sharp bony prominences in this area. At this point I carefully planned out the repair of the superior peroneal retinaculum. I then reduced the tendons and they sat nicely in the deepened retro-fibular groove. The wound was copiously irrigated. I repaired the SPR utilizing #1 Vicryl suture in a transosseous horizontal mattress suture pattern. I utilized multiple sutures for this repair, appropriately tensioning the SPR. I was able to pass a [place] under the repaired SPR without difficulty after the repair. We then irrigated the wound copiously again. The wound was closed in a layered fashion utilizing 3-0 Monocryl and 3-0 nylon. A sterile dressing was then applied and the ankle was splinted in a neutral position. All needle and sponge counts were correct at the end of the case. The patient was awakened from anesthesia and transferred to the recovery room in stable condition. There were no complications. ATTESTATION: I attest I was present and scrubbed and performed the critical portions of the procedure myself. POST-OPERATIVE PLAN: The patient will remain [id number] for an anticipated duration of 6 weeks. Follow up will be in 2 weeks for likely suture removal and transition into a short leg cast.
== END 2019-06-28 11:20 | disposition home or self-care (01) ==
LOC: OR 06:25
PROVIDERS: ATTEND Orthopaedic Surgery
DX: M25.372 Other instability, left ankle (principal); M76.72 Peroneal tendinitis, left leg; T84.84XA Pain due to internal orthopedic prosthetic devices, implants and grafts, initial encounter; M89.9 Disorder of bone, unspecified; Z87.891 Personal history of nicotine dependence; E11.9 Type 2 diabetes mellitus without complications; Z79.4 Long term (current) use of insulin; Z79.84 Long term (current) use of oral hypoglycemic drugs; I10 Essential (primary) hypertension; G47.33 Obstructive sleep apnea (adult) (pediatric); E78.00 Pure hypercholesterolemia, unspecified
CPT/HCPCS: A9270-GY; C1776; J0330; J0690; J1100; J1885; J2250; J2405; J2704; J2765; J3010; J3490